=== PATIENT | male | born 1990 | race African-American/Black ===

== ENCOUNTER 2023-08-08 01:18 | Emergency (ER) | payer MEDICAID ==
[~2023-08-08] VITALS: Ht 182.9 cm; Wt 82.0 kg
[2023-08-08 01:35] VITALS: TEMP 98.4
[2023-08-08] MEDS ORDERED: FAMOTIDINE 20 MG TABLET PO ONE (02:15)
[2023-08-08] MEDS ORDERED: MAG HYDROX/AL HYDROX/SIMETH 30 ML SUSP UDCUP PO ONE (02:15)
[2023-08-08] MEDS ORDERED: ACETAMINOPHEN 500 MG TABLET PO ONE (02:15)
[2023-08-08 02:36] LABS: CALCIUM, TOTAL 9.2 mg/dL (8.8-10.5); CARBON DIOXIDE 29 mmol/L (22-29); CHLORIDE 102 mmol/L (98-107); CREATININE 0.98 mg/dL (0.60-1.30); GLOMERULAR FILTR. RATE CALC > 60 mL/min (>60); GLUCOSE,RANDOM 104 mg/dL (70-110); UREA NITROGEN, BLOOD 12 mg/dL (7-18)
[2023-08-08 02:37] LABS: BASOPHILS % (AUTO) 0.5 % (0.0-2.0); EOSINOPHILS % (AUTO) 2.6 % (1.0-6.0); HEMATOCRIT 43.5 % (41-53); HEMOGLOBIN 14.6 g/dL (13.5-17.5); LYMPHOCYTES # (AUTO) 2.2 K/uL (1.0-4.8); MEAN CORPUSCULAR HEMOGLOBIN 29.1 pg (26.0-34.0); MEAN CORPUSCULAR HGB CONC 33.5 G/dL (31.0-37.0); MEAN CORPUSCULAR VOLUME 87 fL (80-100); MONOCYTES # (AUTO) 0.5 K/uL (0.1-1.0); MONOCYTES % (AUTO) 11.3 % (2.0-9.0); NEUTROPHILS # (AUTO) 1.5 K/uL (1.8-7.7); NEUTROPHILS % (AUTO) 33.6 % (40.0-70.0); PLATELET COUNT (AUTO) 160 K/uL (150-450); RED BLOOD CELL COUNT(AUTO) 5.01 MIL/uL (4.50-5.90); RED CELL DISTRIBUTION WIDTH 12.8 % (11.5-14.5); WHITE BLOOD COUNT (AUTO) 4.3 K/uL (4.5-11.0)
[2023-08-08 02:44] LABS: TROPONIN I-HIGH SENSITIVITY 8 ng/L (<76)
[2023-08-08 02:54] LABS: ALANINE AMINOTRANSFERASE 29 U/L (12-78); ALBUMIN 3.9 g/dL (3.4-5.0); ALKALINE PHOSPHATASE 87 U/L (46-116); ANION GAP 7 mmol/L (8-16); ASPARTATE AMINOTRANSFERASE 22 U/L (15-37); BILIRUBIN,TOTAL 0.3 mg/dL (0.1-1.0); CREATINE KINASE, TOTAL ONLY 185 U/L (39-308); SODIUM SERUM 138 mmol/L (136-145); TOTAL PROTEIN, SERUM 7.3 g/dL (6.4-8.2)
[2023-08-08 05:26] VITALS: BP 108/73; PULSE 73; RESP 16
[2023-08-08] MEDS ORDERED: ACET-3385 PO (05:53)
[2023-08-08] MEDS ORDERED: OMEP20 PO (05:53)
== END 2023-08-08 06:13 | disposition home or self-care (01) ==
LOC: EMS 01:18
DX: R07.89 Other chest pain (principal)
CPT/HCPCS: 71045; 80053; 82550; 84484; 85025; 93005; 99285; 36415-L1; 36415-TC